=== PATIENT | female | born 1960 | race Hispanic/Latino ===

== ENCOUNTER 2021-04-09 12:34 | Emergency (ER) | payer BC, OTHER ==
[~2021-04-09] VITALS: Ht 152.4 cm; Wt 64.9 kg
[~2021-04-09 12:34] MED LIST: HYDROCODONE PO; IBUPROFEN PO; Z.1.TIZANIDINE HCL2
[2021-04-09] MEDS ORDERED: HYDROCODONE/APAP 5MG-325MG TAB PO ONE (14:45)
[2021-04-09] MEDS ORDERED: KETOROLAC TROMETHAMINE 60 MG/2 ML VIAL IM ONE (14:45)
[2021-04-09 15:28] VITALS: BP 129/76
== END 2021-04-09 15:29 | disposition home or self-care (01) ==
LOC: ER 13:49
DX: S20.211A Contusion of right front wall of thorax, initial encounter (principal); V43.52XA Car driver injured in collision with other type car in traffic accident, initial encounter; Y92.488 Other paved roadways as the place of occurrence of the external cause; I10 Essential (primary) hypertension; E78.5 Hyperlipidemia, unspecified
CPT/HCPCS: 70450; 71045; 72125; 99284; J1885